=== PATIENT | male | born 1995 | race Two or more races ===

== ENCOUNTER 2017-11-25 12:25 | Emergency (ER) | payer OTHER ==
[~2017-11-25] VITALS: Ht 170.2 cm; Wt 74.8 kg
[2017-11-25 12:36] VITALS: BP 132/77
== END 2017-11-25 15:47 | disposition left against medical advice (07) ==
LOC: ER 12:25
DX: R51 Headache (principal); H53.2 Diplopia; E11.9 Type 2 diabetes mellitus without complications; I10 Essential (primary) hypertension; Z53.21 Procedure and treatment not carried out due to patient leaving prior to being seen by health care provider